=== PATIENT | male | born 1975 | race Caucasian/White ===

== ENCOUNTER 2018-12-22 11:48 | Emergency (ER) | payer BC ==
--- NOTE | 2018-12-22 12:12 | UC ---
Throat Pain/Nasal Nael HPI - HPI Summary HPI Summary: sore throat x 5 days , worse today, son positive for strep today no fever , + chills, no cough, runny nose - History of Current Complaint Chief Complaint: UCRespiratory Stated Complaint: SORE THROAT Time Seen by Provider: 12/22/18 12:02 Hx Obtained From: Patient Onset/Duration: Gradual Onset, Lasting Days - 5, Still Present Severity: Moderate Pain Intensity: 7 Cough: None Associated Signs & Symptoms: Negative: Wheezing, Hoarseness, Sinus Discomfort, Nasal Discharge, Fever, Vomiting, Rash - Allergies/Home Medications Allergies/Adverse Reactions: Allergies Allergy/AdvReac Type Severity Reaction Status Date / Time No Known Allergies Allergy Verified 12/22/18 12:04 Home Medications: Home Medications Chlorphenir/Phenyleph/Aspirin [[place] Plus Cold Tab Eff] 1 tab PO ONCE PRN 12/22/18 [History Confirmed 12/22/18] Dm/PE/Acetaminophen/Doxylamine [Vicks Nyquil Severe Cold-Flu] 1 each PO ONCE PRN 12/22/18 [History Confirmed 12/22/18] PMH/Surg Hx/FS Hx/Imm Hx Previously Healthy: Yes - Surgical History Surgical History: None - Family History Known Family History: Negative: Diabetes - Social History Alcohol Use: Daily Substance Use Type: Marijuana Smoking Status (MU): Never Smoked Tobacco Review of Systems All Other Systems Reviewed And Are Negative: Yes Constitutional: Positive: Chills, Fatigue Skin: Positive: Negative Eyes: Positive: Negative ENT: Positive: Sore Throat Respiratory: Positive: Negative Is Patient Immunocompromised?: No Physical Exam Triage Information Reviewed: Yes Appearance: Well-Appearing, No Pain Distress, Well-Nourished Vital Signs: Initial Vital Signs Temp 97.4 F 12/22/18 12:01 Pulse 86 12/22/18 12:01 Resp 18 12/22/18 12:01 BP 143/89 12/22/18 12:01 Pulse Ox 97 12/22/18 12:01 Vital Signs Reviewed: Yes Eye Exam: Normal ENT Exam: Normal ENT: Positive: Normal ENT inspection, Hearing grossly normal, Pharyngeal erythema, TMs normal. Negative: TM bulging, TM dull, TM red Neck: Positive: Supple, Nontender, No Lymphadenopathy Respiratory Exam: Normal Respiratory: Positive: Chest non-tender, Lungs clear, Normal breath sounds Cardiovascular: Positive: RRR, No Murmur, Pulses Normal Throat Pain/Nasal Course/Dx - Differential Dx/Diagnosis Provider Diagnosis: Pharyngitis Discharge - Sign-Out/Discharge Documenting (check all that apply): Patient Departure All imaging exams completed and their final reports reviewed: No Studies - Discharge Plan Condition: Stable Disposition: HOME Patient Education Materials: Pharyngitis (ED) Referrals: Jacki Rdz MD [Primary Care Provider] - If Needed Additional Instructions: negative rapid strep viral pharyngitis - Billing Disposition and Condition Condition: STABLE Disposition: Home
== END 2018-12-22 12:28 | disposition home or self-care (01) ==
LOC: UCEAST 11:48
DX: J02.9 Acute pharyngitis, unspecified (principal)
CPT/HCPCS: 87651; 99201; G0463

== ENCOUNTER 2019-11-09 13:43 | Emergency (ER) | payer BC ==
[2019-11-09 14:02] VITALS: BP 144/102
--- NOTE | 2019-11-09 14:47 | UC ---
Shoulder Pain HPI - HPI Summary HPI Summary: 44-year-old male presenting with right shoulder pain after he states he was ice skating and fell. States there is a "bulge on top the shoulder." He states the pain "feels really tight." Denies radiating pain. Denies neck pain. Denies decreased range of motion, stating "I was able to turn my arm and a full benton right after it happened." Denies numbness and tingling. Denies prior shoulder injury. Took 800 mg of ibuprofen before coming, which he states helped. - History of Current Complaint Chief Complaint: UCUpperExtremity Stated Complaint: SHOULDER INJURY Hx Obtained From: Patient Pain Intensity: 7 Pain Scale Used: 0-10 Numeric - Allergies/Home Medications Allergies/Adverse Reactions: Allergies Allergy/AdvReac Type Severity Reaction Status Date / Time No Known Allergies Allergy Verified 11/09/19 14:02 Home Medications: Home Medications Cyclobenzaprine TAB* [Flexeril 10 MG TAB*] 10 mg PO BEDTIME PRN #7 tab 11/09/19 [Rx] Ibuprofen 800 mg PO Q8H PRN 11/09/19 [History Confirmed 11/09/19] PMH/Surg Hx/FS Hx/Imm Hx - Surgical History Surgical History: None - Family History Known Family History: Positive: Non-Contributory Negative: Diabetes - Social History Alcohol Use: Daily Substance Use Type: Marijuana Smoking Status (MU): Never Smoked Tobacco Review of Systems All Other Systems Reviewed And Are Negative: No Constitutional: Positive: Negative Skin: Negative: Bruising Respiratory: Positive: Negative Cardiovascular: Positive: Negative Neurovascular: Positive: Negative Musculoskeletal: Positive: Arthralgia - right shoulder pain and "bulge", Edema. Negative: Decreased ROM Neurological/Mental Status: Positive: Negative. Negative: Paresthesia, Numbness Physical Exam - Summary Physical Exam Summary: Vital Signs Reviewed: Yes A+Ox3, no distress, sitting bracing his right arm Eyes: Conjunctiva Clear ENT: Hearing grossly normal neck: supple Respiratory: Positive: No respiratory distress, No accessory muscle use Cardiovascular: skin color reflect adequate perfusion Musculoskeletal Exam: +TTP of AC joint with significant edema of anterior and dorsal shoulder, spasm noted of right trapezius, no erythema, abrasion, or ecchymosis, ROM intact, sensation grossly intact, 2+ radial pulses, cap refill < 2sec Neurological: Positive: Alert, ambulatory without difficulty Psychological: Positive: age appropriate behavior Skin: Positive: see above Vital Signs: Initial Vital Signs Temp 96.2 F 11/09/19 13:57 Pulse 83 11/09/19 13:57 Resp 21 11/09/19 13:57 BP 144/102 11/09/19 13:57 Pulse Ox 100 11/09/19 13:57 Diagnostics - Radiology right shoulder Radiology Interpretation Completed By: Radiologist Summary of Radiographic Findings: FINDINGS: There is soft tissue swelling dorsal to the acromioclavicular joint. There is widening of the acromioclavicular joint space. No fracture is seen. The glenohumeral joint space appears maintained. IMPRESSION: ACROMIOCLAVICULAR JOINT SEPARATION. Shoulder Course/Dx - Course Course Of Treatment: Discussed AC joint separation with patient. Educated on treating symptoms and keeping the shoulder as mobile as possible. Instructed to keep the splint on while active during the day and to perform ROM exercises a few times daily as tolerated. Instructed to follow up with sports med for further eval and treatment. Patient voiced understanding and agreed with treatment plan. - Differential Dx/Diagnosis Differential Diagnosis/HQI/PQRI: AC Separation, Contusion, Dislocation, Fracture (Closed), Rotator Cuff Injury, Sprain, Strain Provider Diagnosis: Acromioclavicular joint separation Discharge ED - Sign-Out/Discharge Documenting (check all that apply): Patient Departure All imaging exams completed and their final reports reviewed: Yes - Discharge Plan Condition: Stable Disposition: HOME Prescriptions: Cyclobenzaprine TAB* [Flexeril 10 MG TAB*] 10 mg PO BEDTIME PRN #7 tab PRN Reason: Spasms - Muscle Patient Education Materials: Shoulder Separation Exercises (GEN), Acromioclavicular Separation (ED) Referrals: [facility] [Outside] - As Soon As Possible Additional Instructions: Your radiographs did show acromioclavicular joint separation. Continue to rest, ice/heat, and take ibuprofen as directed for pain relief. You may take flexeril at bedtime for spasm relief. This medication may make you drowsy so do not drive or operate heavy machinery while taking it. Wear the sling while you are up and active during the day. It is VERY IMPORTANT that you perform the range of motion exercises provided to you as tolerated to avoid frozen shoulder. You will need to follow up with the referral listed below as soon as possible for further evaluation and treatment. - Billing Disposition and Condition Condition: STABLE Disposition: Home
== END 2019-11-09 15:26 | disposition home or self-care (01) ==
LOC: UCEAST 13:43
DX: S43.101A Unspecified dislocation of right acromioclavicular joint, initial encounter (principal); V00.211A Fall from ice-skates, initial encounter; Y93.21 Activity, ice skating; Y92.9 Unspecified place or not applicable
CPT/HCPCS: 99213; G0463